=== PATIENT | female | born 1990 | race Caucasian/White ===

== ENCOUNTER → 2023-03-29 | Outpatient (CLI) | payer OTHER ==
[2023-03-29 13:27] LABS: BASO % 0.4 % (0.0-1.0); EOS # 0.3 10^3/uL (0.0-0.5); HEMATOCRIT 43.6 % (36.0-47.0); HEMOGLOBIN 14.3 g/dl (12.0-15.5); LYMPH # 1.6 10^3/uL (1.5-5.0); LYMPH % 18.6 % (24.0-44.0); MEAN CORPUSCULAR HEMOGLOBIN 29.7 pg (27.0-33.0); MEAN CORPUSCULAR HGB CONC 32.8 g/dl (32.0-36.5); MEAN CORPUSCULAR VOLUME 90.5 fl (80.0-96.0); MONO # 0.5 10^3/uL (0.0-0.8); NEUTROPHILS # 6.1 10^3/uL (1.5-8.5); NEUTROPHILS % 70.8 % (36.0-66.0); PLATELET COUNT, AUTOMATED 297 10^3/uL (150-450); RED BLOOD COUNT 4.82 10^6/uL (4.00-5.40); WHITE BLOOD COUNT 8.6 10^3/uL (4.0-10.0)
[2023-03-29 13:55] LABS: ALBUMIN 4.3 G/DL (3.2-5.2); ALKALINE PHOSPHATASE 46 U/L (46-116); ALT/SGPT 15 U/L (7.0-40); AST/SGOT 13 U/L (<34); BILIRUBIN,TOTAL 0.8 MG/DL (0.3-1.2); BLOOD UREA NITROGEN 9 MG/DL (9-23); CARBON DIOXIDE LEVEL 28 MMOL/L (20-31); CHLORIDE LEVEL 106 MMOL/L (98-107); CHOLESTEROL LEVEL 161 MG/DL (<200); CHOLESTEROL RISK RATIO 2.65 (<5); CREATININE FOR GFR 0.53 MG/DL (0.55-1.30); GLOMERULAR FILTRATION RATE > 60.0 (>60); GLUCOSE, FASTING 90 MG/DL (60-100); HDL CHOLESTEROL 60.7 MG/DL (>40); LDL CHOLESTEROL 81.9 MG/DL (<100); NON-HDL-C 100.3 MG/DL; POTASSIUM SERUM 4.3 MMOL/L (3.5-5.1); SODIUM LEVEL 139 MMOL/L (136-145); TOTAL PROTEIN 7.4 G/DL (5.7-8.2); TRIGLYCERIDES LEVEL 92 MG/DL (<150)
[2023-03-29 13:56] LABS: FREE T4 1.41 NG/DL (0.89-1.76)
[2023-03-29 13:57] LABS: THYROID STIMULATING HORMONE 6.026 uIU/ML (0.55-4.78)
== END ==
LOC: M PLALAB 11:22
PROVIDERS: ATTEND Family Medicine
DX: E66.3 Overweight (principal)

== ENCOUNTER → 2023-05-01 | Outpatient (CLI) | payer OTHER ==
[2023-05-01 16:57] LABS: FOLLICLE STIMULATING HORMONE 10.5 mIU/ML
[2023-05-01 17:00] LABS: LUTEINIZING HORMONE 35.5 mIU/ML
[2023-05-01 17:01] LABS: FREE T4 1.61 NG/DL (0.89-1.76)
[2023-05-01 20:30] LABS: FREE T3 3.6 PG/ML (2.3-4.2)
== END ==
LOC: M PLALAB 13:15
PROVIDERS: ATTEND Family Medicine
DX: E03.9 Hypothyroidism, unspecified (principal); E28.2 Polycystic ovarian syndrome

== ENCOUNTER → 2023-08-08 | Outpatient (CLI) | payer OTHER ==
[2023-08-08 14:49] LABS: THYROID STIMULATING HORMONE 0.606 uIU/ML (0.55-4.78)
[2023-08-08 14:51] LABS: FREE T4 1.45 NG/DL (0.89-1.76)
[2023-08-08 14:53] LABS: FREE T3 3.4 PG/ML (2.3-4.2)
== END ==
LOC: M PLALAB 09:43
PROVIDERS: ATTEND Family Medicine
DX: E03.9 Hypothyroidism, unspecified (principal)

== ENCOUNTER → 2023-12-27 | Outpatient (CLI) | payer OTHER ==
[2023-12-27 13:56] LABS: FREE T4 1.56 NG/DL (0.89-1.76); THYROID STIMULATING HORMONE 2.836 uIU/ML (0.55-4.78)
== END ==
LOC: M PLALAB 10:37
PROVIDERS: ATTEND Family Medicine
DX: E03.9 Hypothyroidism, unspecified (principal)

== ENCOUNTER → 2024-07-09 | Outpatient (CLI) | payer OTHER ==
[2024-07-09 15:42] LABS: BASO # 0.1 10^3/uL (0.0-0.2); BASO % 0.7 % (0.0-1.0); EOS # 0.1 10^3/uL (0.0-0.5); EOS % 1.5 % (0.0-3.0); HEMATOCRIT 38.8 % (36.0-47.0); HEMOGLOBIN 12.9 g/dl (12.0-15.5); LYMPH % 26.2 % (24.0-44.0); MEAN CORPUSCULAR HEMOGLOBIN 30.1 pg (27.0-33.0); MEAN CORPUSCULAR HGB CONC 33.2 g/dl (32.0-36.5); MEAN CORPUSCULAR VOLUME 90.4 fl (80.0-96.0); MONO # 0.3 10^3/uL (0.0-0.8); MONO % 4.4 % (2.0-8.0); NEUTROPHILS % 66.9 % (36.0-66.0); PLATELET COUNT, AUTOMATED 286 10^3/uL (150-450); RED BLOOD COUNT 4.29 10^6/uL (4.00-5.40); WHITE BLOOD COUNT 7.5 10^3/uL (4.0-10.0)
[2024-07-09 15:51] LABS: ALKALINE PHOSPHATASE 46 U/L (35-104); ALT/SGPT 12 U/L (7.0-40); AST/SGOT 11 U/L (<34); BILIRUBIN,TOTAL 0.6 MG/DL (0.3-1.2); BLOOD UREA NITROGEN 8 MG/DL (9-23); CALCIUM LEVEL 8.7 MG/DL (8.5-10.1); CARBON DIOXIDE LEVEL 29 MMOL/L (20-31); CHLORIDE LEVEL 105 MMOL/L (98-107); CREATININE FOR GFR 0.71 MG/DL (0.55-1.30); GLOMERULAR FILTRATION RATE > 90.0 (>60); GLUCOSE, FASTING 103 MG/DL (60-100); SODIUM LEVEL 143 MMOL/L (136-145); TOTAL PROTEIN 6.9 G/DL (5.7-8.2)
[2024-07-09 15:52] LABS: FOLLICLE STIMULATING HORMONE 7.1 mIU/ML; LUTEINIZING HORMONE 4.3 mIU/ML
[2024-07-09 15:53] LABS: FREE T4 1.45 NG/DL (0.89-1.76); THYROID STIMULATING HORMONE 1.696 uIU/ML (0.55-4.78)
[2024-07-09 15:55] LABS: FREE T3 2.9 PG/ML (2.3-4.2)
== END ==
LOC: M PLALAB 13:40
PROVIDERS: ATTEND Family Medicine
DX: C73 Malignant neoplasm of thyroid gland (principal); E66.3 Overweight; E28.2 Polycystic ovarian syndrome

== ENCOUNTER → 2024-10-13 | Outpatient (CLI) | payer OTHER ==
[2024-10-13 13:28] LABS: PLATELET COUNT, AUTOMATED 270 10^3/uL (150-450)
[2024-10-13 13:57] LABS: FREE T4 1.37 NG/DL (0.89-1.76)
[2024-10-13 14:22] LABS: HIV 1&2 SCREEN NEGATIVE (NEGATIVE)
[2024-10-13 14:30] LABS: HEPATITIS C VIRUS ABY INDEX < 0.02 INDEX (<0.8)
[2024-10-13 14:42] LABS: Trichomonas vaginalis (AMP) NOT DETECTED (NEGATIVE)
[2024-10-13 15:06] LABS: GC DNA AMPLIFICATION NEGATIVE (NEGATIVE)
== END ==
LOC: M PLALAB 10:28
PROVIDERS: ATTEND Advanced Practice Midwife
DX: Z34.81 Encounter for supervision of other normal pregnancy, first trimester (principal); Z3A.00 Weeks of gestation of pregnancy not specified

== ENCOUNTER → 2024-12-24 | Outpatient (CLI) | payer OTHER | LOC: M WHC 09:37 | PROVIDERS: ATTEND Obstetrics & Gynecology | DX: Z34.82 Encounter for supervision of other normal pregnancy, second trimester (principal); Z3A.20 20 weeks gestation of pregnancy ==

== ENCOUNTER → 2025-01-16 | Outpatient (CLI) | payer OTHER | LOC: M EKG 12:58 | PROVIDERS: ATTEND Nurse Practitioner Family | DX: R00.2 Palpitations (principal); I45.19 Other right bundle-branch block; R94.31 Abnormal electrocardiogram [ECG] [EKG] ==

== ENCOUNTER → 2025-01-28 | Outpatient (CLI) | payer OTHER | LOC: M PLALAB 09:40 | PROVIDERS: ATTEND Nurse Practitioner Family | DX: Z34.80 Encounter for supervision of other normal pregnancy, unspecified trimester (principal) ==

== ENCOUNTER → 2025-02-04 | Outpatient (CLI) | payer OTHER ==
[2025-02-04 14:03] LABS: GLUCOSE CHALLENGE TEST 1 HOUR 103 MG/DL (LESS THAN 140)
[2025-02-04 14:08] LABS: FREE T4 1.16 NG/DL (0.89-1.76)
[2025-02-04 14:09] LABS: PLATELET COUNT, AUTOMATED 240 10^3/uL (150-450)
[2025-02-04 14:42] LABS: HIV 1&2 SCREEN NEGATIVE (NEGATIVE)
[2025-02-04 14:50] LABS: HEPATITIS C VIRUS ABY INDEX < 0.02 INDEX (<0.8)
[2025-02-04 15:18] LABS: Trichomonas vaginalis (AMP) NOT DETECTED (NEGATIVE)
[2025-02-04 15:42] LABS: GC DNA AMPLIFICATION NEGATIVE (NEGATIVE)
== END ==
LOC: M PLALAB 09:35
PROVIDERS: ATTEND Nurse Practitioner Family
DX: O99.282 Endocrine, nutritional and metabolic diseases complicating pregnancy, second trimester (principal)

== ENCOUNTER → 2025-02-14 | Outpatient (CLI) | payer OTHER ==
[~2025-02-14] MED LIST: MAGN400T2 PO
== END ==
LOC: M EKG 09:09
PROVIDERS: ATTEND Internal Medicine Cardiovascular Disease
DX: R00.2 Palpitations (principal)

== ENCOUNTER 2025-02-15 13:14 | Emergency (ER) | payer OTHER ==
[~2025-02-15] VITALS: Ht 160 cm; Wt 75.5 kg
[2025-02-15] MEDS: NS 500 ML IV ONE (14:16)
[2025-02-15 14:22] LABS: BASO # 0.0 10^3/uL (0.0-0.2); BASO % 0.3 % (0.0-1.0); EOS # 0.1 10^3/uL (0.0-0.5); EOS % 0.8 % (0.0-3.0); LYMPH # 1.5 10^3/uL (1.5-5.0); LYMPH % 13.9 % (24.0-44.0); MONO # 0.6 10^3/uL (0.0-0.8); MONO % 5.6 % (2.0-8.0); NEUTROPHILS # 8.5 10^3/uL (1.5-8.5); NEUTROPHILS % 77.9 % (36.0-66.0); PLATELET COUNT, AUTOMATED 230 10^3/uL (150-450)
[2025-02-15 14:48] LABS: FREE T4 1.09 NG/DL (0.89-1.76)
[2025-02-15 14:49] LABS: ALT/SGPT 17 U/L (7.0-40); AST/SGOT 18 U/L (<34); CALCIUM LEVEL 8.9 MG/DL (8.5-10.1); CARBON DIOXIDE LEVEL 23 MMOL/L (20-31); CHLORIDE LEVEL 106 MMOL/L (98-107); CREATININE FOR GFR 0.44 MG/DL (0.55-1.30); GLOMERULAR FILTRATION RATE > 90.0 (>60); MAGNESIUM LEVEL 1.7 MG/DL (1.8-2.4); POTASSIUM SERUM 4.0 MMOL/L (3.5-5.1); SODIUM LEVEL 141 MMOL/L (136-145)
[2025-02-15] MEDS ORDERED: MAGN400T2 PO (16:00)
[2025-02-15 16:17] VITALS: BP 111/56; TEMP 98.7; O2SAT 97
== END 2025-02-15 16:19 | disposition home or self-care (01) ==
LOC: M ED 13:14
DX: R00.2 Palpitations (principal); I45.10 Unspecified right bundle-branch block

== ENCOUNTER 2025-03-14 18:20 | Outpatient (CLI) | payer OTHER ==
[~2025-03-14] VITALS: Ht 160 cm; Wt 78.8 kg
[2025-03-14] MEDS ORDERED: SYNT100T PO (18:39)
[2025-03-14] MEDS ORDERED: PRENTAB9 PO (18:39)
[2025-03-14] MEDS ORDERED: HOME MED LIST COMPLETE! XX SCH (18:40)
[2025-03-14 18:43] VITALS: BP 99/68; O2SAT 97
== END 2025-03-14 19:22 | disposition home or self-care (01) ==
LOC: M LDO 18:20
PROVIDERS: ATTEND Specialist
DX: O36.8130 Decreased fetal movements, third trimester, not applicable or unspecified (principal); O99.513 Diseases of the respiratory system complicating pregnancy, third trimester; O99.343 Other mental disorders complicating pregnancy, third trimester; F32.A Depression, unspecified; J45.909 Unspecified asthma, uncomplicated; Z85.850 Personal history of malignant neoplasm of thyroid; Z90.89 Acquired absence of other organs; Z3A.31 31 weeks gestation of pregnancy
CPT/HCPCS: 59025; G0463